=== PATIENT | male | born 1975 | race Caucasian/White ===

== ENCOUNTER → 2017-08-05 | Outpatient (CLI) | payer MEDICARE, OTHER ==
[~2017-08-05] MED LIST: Bactrim Ds Tab1 EACH PO; HYDACE5 PO; IBUP600 PO; NAPR250; Norco 10-325 T1 EACH PO; Percocet 5-3251 EACH PO; Prednisone20 MG PO; Zithromax250 MG PO
== END | disposition home or self-care (01) ==
LOC: LAB SHORT 08:25 → PLD 08:25 → EDSTATUS 09:42
DX: D22.5 Melanocytic nevi of trunk (principal)
CPT/HCPCS: 88305